=== PATIENT | female | born 1980 | race Caucasian/White ===

== ENCOUNTER → 2024-02-14 | Day surgery (SDC) | payer OTHER ==
[~2024-02-14] MED LIST: ISOSULFAN BLUE 50 MG/5 ML VIAL SQ ONE
== END | disposition home or self-care (01) ==
LOC: JRADUS-SUR 09:42
PROVIDERS: ATTEND Surgery
PROC: BH01ZZZ Plain Radiography of Left Breast (ICD-10-PCS; principal; 2024-02-14)
DX: D05.12 Intraductal carcinoma in situ of left breast (principal)
CPT/HCPCS: 19281; A4648

== ENCOUNTER 2024-02-19 04:05 | Day surgery (SDC) | payer OTHER ==
[2024-02-13 13:19] VITALS: BMI 29.9
[2024-02-19] MEDS ORDERED: LIDOCAINE HCL 1%, 10 MG/ML (20ML VIAL) ONE (12:08)
[2024-02-19] MEDS ORDERED: MIDAZOLAM HCL 2 MG/2 ML SINGLE DOSE VIAL ONE (12:10)
[2024-02-19] MEDS ORDERED: FENTANYL CITRATE/PF 50 MCG/ML VIAL ONE ×2 (12:10→12:52)
[2024-02-19] MEDS ORDERED: PROPOFOL 20 ML ONE ×2 (12:10→12:13)
[2024-02-19] MEDS: ceFAZolin SODIUM 1 GM VIAL IVPB ONE (12:50)
[2024-02-19] MEDS ORDERED: ONDANSETRON 4 MG/2 ML VIAL ONE (12:54)
[2024-02-19] MEDS ORDERED: DEXAMETHASONE SOD PHOSPHATE 4 MG/1 ML VIAL ONE (12:54)
[2024-02-19] MEDS: LIDOCAINE HCL 1%, 10 MG/ML (20ML VIAL) INF ONE ×2 (12:59)
[2024-02-19] MEDS ORDERED: KETOROLAC TROMETHAMINE 30 MG/1 ML VIAL ONE (13:29)
[2024-02-19] MEDS ORDERED: ONDANSETRON 4 MG/2 ML VIAL IVPUSH PRN (13:57)
[2024-02-19] MEDS ORDERED: LACTATED RINGERS SOLUTION 1,000 ML IV SCH (14:00)
[2024-02-19] MEDS: ACETAMINOPHEN 1000 MG/100 ML BAG IVPB ONE (14:16)
[2024-02-19 16:01] VITALS: PULSE 76; RESP 20; TEMP 97.3
[2024-02-19 16:50] VITALS: BP 115/64
== END 2024-02-19 16:56 | disposition home or self-care (01) ==
LOC: JASU-SURG 04:05
PROVIDERS: ATTEND Surgery
PROC: 0HBU0ZZ Excision of Left Breast, Open Approach (ICD-10-PCS; principal; 2024-02-19 11:00)
DX: D05.12 Intraductal carcinoma in situ of left breast (principal)
CPT/HCPCS: 76098-TC-FY; 81025; 86850; 86900; 86901; 88307-TC; 88341-TC; 88342-TC; 94760; J0131

== ENCOUNTER → 2025-05-10 | Day surgery (SDC) | payer OTHER ==
[~2025-05-10] MED LIST changes: -ISOSULFAN BLUE 50 MG/5 ML VIAL SQ ONE; +KETAMINE HCL 200 MG/20 ML VIAL ONE; +LIDOCAINE HCL 1%, 10 MG/ML (20ML VIAL) ONE; +MIDAZOLAM HCL 2 MG/2 ML SINGLE DOSE VIAL ONE; +PROPOFOL 20 ML ONE; +SUCCINYLCHOLINE CHLORIDE 200 MG/10 ML SYRINGE ONE
== END | disposition home or self-care (01) ==
LOC: JRADUS-SUR 09:58 → JMAMMO-SUR 09:58
PROVIDERS: ATTEND Surgery
PROC: BH00ZZZ Plain Radiography of Right Breast (ICD-10-PCS; principal; 2025-05-10)
DX: D24.1 Benign neoplasm of right breast (principal)
CPT/HCPCS: 19281; A4648